=== PATIENT | female | born 1985 | race Caucasian/White ===

== ENCOUNTER 2017-06-23 16:24 | Inpatient (IN) | payer SELFPAY ==
[~2017-06-23] VITALS: Ht 162.6 cm; Wt 65.8 kg
[2017-06-23 05:00] VITALS: BP 101/50
[~2017-06-23 16:24] MED LIST: CLAR500T4; LEVO500T2; SULFA; TRIMETH
[2017-06-23 18:10] LABS: BASOPHILS % 0.2 % (0.0-2.0); EOSINOPHILS % 0.2 % (0.0-5.0); LYMPHOCYTES % 9.7 % (20.0-50.0); MEAN CORPUSCULAR HEMOGLOBIN 28.4 pg (28.0-32.0); MEAN CORPUSCULAR VOLUME 82.1 fL (81.0-99.0); MEAN PLATELET VOLUME 8.4 fl (7.4-10.4); MONOCYTES % 3.9 % (2.0-8.0); PLATELET 231 x1000/uL (130-400); RED BLOOD CELL COUNT 3.53 mill/uL (4.2-5.4); RED CELL DISTRIBUTION WIDTH 14.5 % (11.6-14.6)
[2017-06-23 18:20] LABS: CHLORIDE 108 mEq/L (98-107)
[2017-06-23] MEDS ORDERED: SODIUM CHLORIDE 0.9% 1,000 ML IV ONE ×2 (18:20→23:52)
[2017-06-23 18:23] LABS: PROTHROMBIN TIME 10.4 sec (9.4-11.6)
[2017-06-23 18:50] LABS: CLARITY URINE CLOUDY (CLEAR); COLOR URINE YELLOW (YELLOW); KETONES URINE NEGATIVE (NEGATIVE); LEUKOCYTE ESTERASE URINE TRACE (NEGATIVE); NITRITE URINE NEGATIVE (NEGATIVE); OCCULT BLOOD URINE 3+ (NEGATIVE); PROTEIN URINE 3+ (NEGATIVE); SPECIFIC GRAVITY URINE 1.023 (1.005-1.030); UROBILINOGEN URINE 0.2 E.U./dL (0.2-1.0)
[2017-06-24 05:00] VITALS: BP 87/48
[2017-06-24] MEDS ORDERED: IBUPROFEN 800MG TABLET PO PRN (05:15)
[2017-06-24] MEDS: DEXT 5%/LR + PITOCIN 20UNITS/L 1,000 ML IV SCH ×3 (05:55→18:50)
[2017-06-24 08:00] VITALS: BP 93/60
[2017-06-24 08:19] LABS: BASOPHILS % 0.5 % (0.0-2.0); EOSINOPHILS % 1.2 % (0.0-5.0); HEMATOCRIT. 21.9 % (36.0-48.0); HEMOGLOBIN. 7.6 g/dL (12.0-16.0); LYMPHOCYTES % 34.1 % (20.0-50.0); MEAN CORPUSCULAR HEMOGLOBIN 28.6 pg (28.0-32.0); MEAN CORPUSCULAR VOLUME 82.2 fL (81.0-99.0); MEAN PLATELET VOLUME 7.9 fl (7.4-10.4); MONOCYTES % 4.9 % (2.0-8.0); NEUTROPHILS % 59.3 % (40.0-76.0); PLATELET 190 x1000/uL (130-400); RED BLOOD CELL COUNT 2.66 mill/uL (4.2-5.4); RED CELL DISTRIBUTION WIDTH 14.4 % (11.6-14.6)
[2017-06-24] MEDS ORDERED: DOXY100C42 PO (11:47)
[2017-06-24 12:00] VITALS: BP 91/60
[2017-06-24 15:59] VITALS: BP 98/70
[2017-06-24 18:56] VITALS: BP 96/55
== END 2017-06-24 20:25 | disposition home or self-care (01) | DRG 532 ==
LOC: ER 19:33 → 6EST 06-24 00:33 → ENRESERV 06-24 02:54
PROVIDERS: ADMIT Obstetrics & Gynecology; ATTEND Obstetrics & Gynecology
DX: N93.9 Abnormal uterine and vaginal bleeding, unspecified (principal); D62 Acute posthemorrhagic anemia
CPT/HCPCS: 36415; 76801; 80053; 81003; 84702; 85018; 85025; 85610; 86850; 86900; J2590; J7030